=== PATIENT | male | born 1940 | race Caucasian/White ===

== ENCOUNTER 2019-11-02 17:30 | Emergency (ER) | payer OTHER ==
[~2019-11-02] VITALS: Ht 180.3 cm; Wt 77.6 kg
[2019-11-02 17:30] VITALS: BP_SYST 148
--- NOTE | 2019-11-02 17:30 | NUR ---
Patient to ER bed 6 to gown for evaluation. Side rails up. Report given to ADIA.
--- NOTE | 2019-11-02 17:38 | NUR ---
Placed in room 06 . Placed on satellite project site monitor, blood pressure machine and pulse oximeter. To gown for exam. Side rails up.
--- NOTE | 2019-11-02 17:42 | NUR ---
pt arrives from home w/ c/o LUQ abd pain x 3 days. Pain became worse today and pt has poor appettite as well.
[2019-11-02] MEDS ORDERED: KETOROLAC TROMETHAMINE 30 MG VIAL IVP ONE (17:45)
--- NOTE | 2019-11-02 17:50 | NUR ---
ER at bedside examining patient.
--- NOTE | 2019-11-02 17:52 | NUR ---
# 20 gauge angiocath placed to right wrist. Use of asceptic technique. Opsite placed over site. Blood return noted. Blood for lab drawn from site. Flushed with 10 cc of normal saline. No evidence of infiltration noted. Patient tolerated well.
[2019-11-02 17:57] LABS: BASOPHILS # (AUTO) 0.1 K/uL (0.0-0.2); BASOPHILS % (AUTO) 0.6 % (0.0-2.0); EOSINOPHILS # (AUTO) 0.1 K/uL (0.0-0.4); HEMATOCRIT 41.4 % (36-54); HEMOGLOBIN 13.7 g/dL (14.0-18.0); LYMPHOCYTES # (AUTO) 1.7 K/uL (1.0-5.5); LYMPHOCYTES % (AUTO) 15.8 % (20.5-51.5); MEAN CORPUSCULAR HEMOGLOBIN 31 pg (27-31); MEAN CORPUSCULAR HGB CONC 33 % (32-36); MEAN CORPUSCULAR VOLUME 93 fL (79.0-98.0); MONOCYTES # (AUTO) 0.8 K/uL (0.0-1.0); MONOCYTES % (AUTO) 7.2 % (1.7-9.3); NEUTROPHILS # (AUTO) 8.3 K/uL (1.8-7.7); NEUTROPHILS % (AUTO) 75.4 % (40.0-70.0); PLATELET COUNT (AUTO) 187 K/uL (130-430); RED BLOOD CELL COUNT(AUTO) 4.43 MIL/uL (4.2-6.2); WHITE BLOOD COUNT (AUTO) 10.9 K/uL (4.8-10.8)
[2019-11-02 18:14] LABS: ANION GAP 8 (5-15); CALCIUM 8.6 mg/dL (8.4-11.0); CHLORIDE 106 mmol/L (98-107); CREATININE 1.06 mg/dL (0.55-1.30); GLUCOSE 120 mg/dL (70-99); POTASSIUM 3.9 mmol/L (3.5-5.1); SODIUM SERUM 141 mmol/L (136-145); UREA NITROGEN, BLOOD 22 mg/dL (8-21)
[2019-11-02 18:19] LABS: ALANINE AMINOTRANSFERASE 23 U/L (12-78); ALBUMIN 3.7 g/dL (3.4-4.8); ASPARTATE AMINOTRANSFERASE 19 U/L (10-37); LIPASE 58 U/L (73-393); TOTAL BILIRUBIN 0.7 mg/dL (0.0-1.0)
--- NOTE | 2019-11-02 19:00 | NUR ---
Patient transported to radiology via gurney, accompanied by CT scan
--- NOTE | 2019-11-02 19:09 | NUR ---
Patient transported to radiology via , accompanied by cadd technician.
--- NOTE | 2019-11-02 19:10 | NUR ---
Care endorsed to Kvng MONTILLA
--- NOTE | 2019-11-02 19:18 | NUR ---
Pt back from Radiology well tolerated
[2019-11-02 19:40] VITALS: BP_SYST 121
--- NOTE | 2019-11-02 19:40 | NUR ---
Patient given written and verbal discharge instructions and verbalizes understanding. ER MD discussed with patient the results and treatment provided. Patient in stable condition. ID arm band removed. IV catheter removed intact and dressing applied, no active bleeding. Rx of Flagyl, Motrin, Cipro and [place] given. Patient educated on pain management and to follow up with PMD. Pain Scale 0/10 Opportunity for questions provided and answered. Medication side effect fact sheet provided.
== END 2019-11-02 19:40 | disposition home or self-care (01) ==
LOC: SED 17:30
DX: R10.32 Left lower quadrant pain (principal)
CPT/HCPCS: 36415; 74176; 80053; 83690; 85025; 96374; 99284; J1885

== ENCOUNTER 2022-08-20 09:49 | Emergency (ER) | payer OTHER ==
[~2022-08-20] VITALS: Ht 180.3 cm; Wt 77.1 kg
[2022-08-20 10:07] VITALS: BP_SYST 124
[2022-08-20] MEDS ORDERED: MORPHINE 2 MG/ML INJ. SYRINGE IVP ONE (10:30)
[2022-08-20] MEDS ORDERED: ONDANSETRON HCL 4 MG/2 ML VIAL IVP ONE (10:30)
[2022-08-20] MEDS ORDERED: PANTOPRAZOLE SODIUM 40 MG/VIAL (PROTONIX) IVP ONE (10:30)
--- NOTE | 2022-08-20 10:30 | NUR ---
Placed in room 7 . Placed on cafeteria monitor, blood pressure machine and pulse oximeter. To gown for exam. Side rails up.
[2022-08-20 10:42] LABS: BILIRUBIN,URINE 1+ (NEGATIVE); BLOOD, URINE 1+ (NEGATIVE); GLUCOSE,URINE NEGATIVE (NEGATIVE); KETONES,URINE 1+ (NEGATIVE); LEUKOCYTE ESTERASE ,URINE 1+ (NEGATIVE); NITRITE, URINE POSITIVE (NEGATIVE); PH,URINE 5.5 (5.0-8.0); PROTEIN URINE TRACE (NEGATIVE)
[2022-08-20 10:45] LABS: BASOPHILS # (AUTO) 0.1 K/uL (0.0-0.2); BASOPHILS % (AUTO) 0.6 % (0.0-2.0); EOSINOPHILS % (AUTO) 0.2 % (0.0-4.0); HEMATOCRIT 41.4 % (36-54); HEMOGLOBIN 13.9 g/dL (14.0-18.0); LYMPHOCYTES # (AUTO) 1.4 K/uL (1.0-5.5); MEAN CORPUSCULAR HEMOGLOBIN 31 pg (27-31); MEAN CORPUSCULAR HGB CONC 34 % (32-36); MEAN CORPUSCULAR VOLUME 92 fL (79.0-98.0); MONOCYTES % (AUTO) 7.5 % (1.7-9.3); NEUTROPHILS # (AUTO) 10.2 K/uL (1.8-7.7); NEUTROPHILS % (AUTO) 80.7 % (40.0-70.0); PLATELET COUNT (AUTO) 179 K/uL (130-430); RED BLOOD CELL COUNT(AUTO) 4.52 MIL/uL (4.2-6.2); RED CELL DISTRIBUTION WIDTH 13.3 % (9.0-15.0); WHITE BLOOD COUNT (AUTO) 12.7 K/uL (4.8-10.8)
[2022-08-20 10:55] LABS: CLARITY/URINE HAZY (CLEAR); COLOR,URINE YELLOW (YELLOW)
[2022-08-20 11:00] LABS: BACTERIA,URINE FEW /HPF (None Seen); MUCUS,URINE 1+ /LPF (None Seen)
[2022-08-20 11:06] LABS: ANION GAP 7 (5-15); CALCIUM 8.8 mg/dL (8.4-11.0); CHLORIDE 102 mmol/L (98-107); CREATININE 1.06 mg/dL (0.55-1.30); GLUCOSE 113 mg/dL (70-99); UREA NITROGEN, BLOOD 22 mg/dL (8-21)
[2022-08-20 11:10] LABS: ALANINE AMINOTRANSFERASE 14 U/L (12-78); ALBUMIN 3.5 g/dL (3.4-4.8); ASPARTATE AMINOTRANSFERASE 13 U/L (10-37); LIPASE 60 U/L (73-393); TOTAL BILIRUBIN 0.9 mg/dL (0.0-1.0)
--- NOTE | 2022-08-20 11:26 | NUR ---
ER at bedside examining patient.
--- NOTE | 2022-08-20 11:27 | NUR ---
Pt C/O RUQ pain AOX4 VSS Able to make needs known Family at bedside Will continue to monitor
[2022-08-20] MEDS ORDERED: cefTRIAXone 1 GM in D5W 50 ML IV ONE (12:15)
[2022-08-20] MEDS ORDERED: cefTRIAXone 1 GM VIAL ONE (12:24)
[2022-08-20] MEDS ORDERED: SENN-22 PO (12:25)
[2022-08-20] MEDS ORDERED: CEPH-548 PO (12:25)
[2022-08-20] MEDS ORDERED: POLY119P2 PO (12:25)
[2022-08-20 13:00] VITALS: BP_SYST 115
--- NOTE | 2022-08-20 13:01 | NUR ---
Patient given written and verbal discharge instructions and verbalizes understanding. ER MD discussed with patient the results and treatment provided. Patient in stable condition. ID arm band removed. IV catheter removed intact and dressing applied, no active bleeding. Rx of cephalexin given. Patient educated on pain management and to follow up with PMD. Pain Scale 0. Opportunity for questions provided and answered. Medication side effect fact sheet provided.
== END 2022-08-20 13:03 | disposition home or self-care (01) ==
LOC: SED 09:49
DX: N39.0 Urinary tract infection, site not specified (principal); K59.00 Constipation, unspecified; R10.31 Right lower quadrant pain; Z79.899 Other long term (current) drug therapy
CPT/HCPCS: 99285; 74176; 96365; 96375; 71045; 80053; 81000; 83690; 85025; 87086; 87186; 36415; 76376; J0696; J2405; C9113; J2270

== ENCOUNTER 2022-10-20 13:17 | Emergency (ER) | payer OTHER ==
[~2022-10-20] VITALS: Ht 180.3 cm; Wt 73.5 kg
[~2022-10-20 13:17] MED LIST: CEPH-548 PO; POLY119P2 PO; SENN-22 PO
[2022-10-20 13:22] VITALS: BP_SYST 140
[2022-10-20] MEDS ORDERED: IBUP-1969 PO (15:36)
[2022-10-20] MEDS ORDERED: AMOX-423 PO (15:36)
[2022-10-20 15:46] VITALS: BP_SYST 140
== END 2022-10-20 15:47 | disposition home or self-care (01) ==
LOC: SED 13:17
DX: J32.9 Chronic sinusitis, unspecified (principal); R51.9 Headache, unspecified; R09.89 Other specified symptoms and signs involving the circulatory and respiratory systems; Z79.899 Other long term (current) drug therapy
CPT/HCPCS: 70450-TC; 76376; 99284